=== PATIENT | male | born 1975 | race Caucasian/White ===

== ENCOUNTER 2018-01-07 09:26 | Day surgery (SDC) | payer BC ==
[2018-01-07] MEDS ORDERED: LACTATED RINGER'S 1,000 ML IV (10:30)
[2018-01-07] MEDS ORDERED: GLYCOPYRROLATE 0.4 MG INJ ×2 (11:51→12:15)
[2018-01-07] MEDS ORDERED: LIDOCAINE 2% (SDV) 5 ML INJ (11:51)
[2018-01-07] MEDS ORDERED: PROPOFOL 20 ML (11:51)
[2018-01-07] MEDS ORDERED: ROCURONIUM 50 MG INJ (11:51)
[2018-01-07] MEDS ORDERED: SUCCINYLCHOLINE CHLORIDE 100 MG/5 ML SYG IV (11:51)
[2018-01-07] MEDS ORDERED: NEOSTIGMINE 3 MG/3 ML SYRINGE ×2 (11:51→12:15)
[2018-01-07] MEDS ORDERED: MEPERIDINE /PF (100 MG/2 ML) AMPULE (11:52)
[2018-01-07] MEDS ORDERED: DIPHENHYDRAMINE 50 MG INJ IV (12:00)
[2018-01-07] MEDS ORDERED: MIDAZOLAM 1 MG/ML 2 ML INJ IV (12:00)
[2018-01-07] MEDS ORDERED: LABETALOL HCL 20MG INJ IV (12:00)
[2018-01-07] MEDS ORDERED: EPHEDrine SULFATE 50 MG/5 ML SYG IV (12:00)
[2018-01-07] MEDS ORDERED: METOCLOPRAMIDE 10 MG INJ IV (12:00)
[2018-01-07] MEDS ORDERED: hydrALAzine 20 MG INJ IV (12:00)
[2018-01-07] MEDS ORDERED: FENTAnyl 50 MCG/ML VIAL IV ×3 (12:00)
[2018-01-07] MEDS ORDERED: OXYCODONE/ACETAMINOPHEN (5/325) TAB PO (12:00)
[2018-01-07] MEDS ORDERED: HYDROmorphONE 1 MG/5 ML IV SYRINGE IV ×3 (12:00)
[2018-01-07] MEDS ORDERED: ONDANSETRON 4 MG INJ IV (12:00)
[2018-01-07] MEDS ORDERED: MEPERIDINE 25 MG INJ IV (12:00)
[2018-01-07] MEDS ORDERED: OCULAR LUBRICANT 3.5 GM OPH OINT (12:12)
[2018-01-07] MEDS: COCAINE 4% 4 ML TOP (12:14)
[2018-01-07] MEDS: LIDOCAINE 1%/EPI 30 ML INJ (12:14)
[2018-01-07] MEDS ORDERED: CEFAZOLIN 1 GM INJ (12:15)
[2018-01-07] MEDS ORDERED: ONDANSETRON 4 MG INJ (13:07)
[2018-01-07] MEDS: BACITRACIN/POLYMYXIN 28.35 GM OINT TOP (13:14)
[2018-01-07] MEDS: OXYCODONE/ACETAMINOPHEN (5/325) TAB PO (15:04)
== END 2018-01-07 15:30 | disposition home or self-care (01) ==
LOC: SUR 09:26 → SDS 09:26 → SUR 15:30
DX: J33.8 Other polyp of sinus (principal); J34.2 Deviated nasal septum; J32.8 Other chronic sinusitis
CPT/HCPCS: 30140; 88305